=== PATIENT | male | born 1950 | race Caucasian/White ===

== ENCOUNTER 2016-07-19 16:28 | Emergency (ER) | payer OTHER ==
[~2016-07-19] VITALS: Ht 172.7 cm; Wt 90.9 kg
[~2016-07-19 16:28] MED LIST: ASPI-556 PO; CARV6; CIPR-278 PO; FURO40TA5 PO; ISOS5TAB5 PO; ONDA4 PO; PANT40TA25 PO; SIMV20TA6 PO; TAMS0.4C32 PO
[2016-07-19 17:21] LABS: BASOPHILS % (AUTO) 0.6 % (0.0-2.0); EOSINOPHILS % (AUTO) 1.3 % (1.0-6.0); HEMATOCRIT 44.3 % (41-53); HEMOGLOBIN 14.2 g/dL (13.5-17.5); LYMPHOCYTES # (AUTO) 2.2 K/uL (1.0-4.8); LYMPHOCYTES % (AUTO) 24.4 % (22.0-44.0); MEAN CORPUSCULAR HEMOGLOBIN 28.1 pg (26.0-34.0); MEAN CORPUSCULAR HGB CONC 32.2 G/dL (31.0-37.0); MEAN CORPUSCULAR VOLUME 87 fL (80-100); MONOCYTES # (AUTO) 0.8 K/uL (0.1-1.0); MONOCYTES % (AUTO) 8.4 % (2.0-9.0); NEUTROPHILS # (AUTO) 5.8 K/uL (1.8-7.7); NEUTROPHILS % (AUTO) 65.3 % (40.0-70.0); PLATELET COUNT (AUTO) 267 K/uL (150-450); RED BLOOD CELL COUNT(AUTO) 5.07 MIL/uL (4.50-5.90); RED CELL DISTRIBUTION WIDTH 15.5 % (11.5-14.5); WHITE BLOOD COUNT (AUTO) 8.9 K/uL (4.5-11.0)
[2016-07-19 17:24] LABS: CALCIUM, TOTAL 9.2 mg/dL (8.8-10.5); CREATININE 1.24 mg/dL (0.60-1.30); POTASSIUM 4.1 mmol/L (3.5-5.1)
[2016-07-19 17:30] LABS: ALBUMIN 4.2 g/dL (3.4-5.0); BILIRUBIN,TOTAL 0.3 mg/dL (0.1-1.0); TOTAL PROTEIN, SERUM 8.2 g/dL (6.4-8.2)
[2016-07-19 20:01] VITALS: BP 164/106
== END 2016-07-19 20:33 | disposition short-term general hospital (02) ==
LOC: EMS 16:31
DX: I61.8 Other nontraumatic intracerebral hemorrhage (principal); I10 Essential (primary) hypertension; I48.91 Unspecified atrial fibrillation; M19.90 Unspecified osteoarthritis, unspecified site; I50.9 Heart failure, unspecified; Z95.0 Presence of cardiac pacemaker; Z95.810 Presence of automatic (implantable) cardiac defibrillator; Z79.82 Long term (current) use of aspirin; W10.9XXA Fall (on) (from) unspecified stairs and steps, initial encounter; Y93.89 Activity, other specified; Y92.9 Unspecified place or not applicable; Y99.9 Unspecified external cause status
CPT/HCPCS: 36415; 70450; 80053; 80307; 85025; 99291; G0480

== ENCOUNTER 2016-07-30 04:53 | Inpatient (IN) | payer OTHER ==
[~2016-07-30] VITALS: Ht 172.7 cm; Wt 91.3 kg
[~2016-07-30 04:53] MED LIST changes: -CIPR-278 PO; -ONDA4 PO
[2016-07-30 05:48] LABS: BASOPHILS # (AUTO) 0.04 K/uL (0.00-0.20); BASOPHILS % (AUTO) 0.5 % (0.0-2.0); EOSINOPHILS # (AUTO) 0.21 K/uL (0.00-0.70); EOSINOPHILS % (AUTO) 2.48 % (1.0-6.0); HEMATOCRIT 42.9 % (41-53); HEMOGLOBIN 14.1 g/dL (13.5-17.5); LYMPHOCYTES # (AUTO) 2.1 K/uL (1.0-4.8); LYMPHOCYTES % (AUTO) 24.7 % (22.0-44.0); MEAN CORPUSCULAR HEMOGLOBIN 28.2 pg (26.0-34.0); MEAN CORPUSCULAR HGB CONC 32.8 G/dL (31.0-37.0); MEAN CORPUSCULAR VOLUME 86 fL (80-100); MONOCYTES # (AUTO) 0.7 K/uL (0.1-1.0); MONOCYTES % (AUTO) 8.4 % (2.0-9.0); NEUTROPHILS # (AUTO) 5.5 K/uL (1.8-7.7); PLATELET COUNT (AUTO) 231 K/uL (150-450); RED CELL DISTRIBUTION WIDTH 15.4 % (11.5-14.5); WHITE BLOOD COUNT (AUTO) 8.5 K/uL (4.5-11.0)
[2016-07-30 06:02] LABS: ANION GAP 9 mmol/L (8-16); CARBON DIOXIDE 28 mmol/L (22-29); CHLORIDE 104 mmol/L (98-107); CREATININE 0.89 mg/dL (0.60-1.30); GLOMERULAR FILTR. RATE CALC > 60 mL/min (>60); POTASSIUM 4.3 mmol/L (3.5-5.1); SODIUM SERUM 141 mmol/L (136-145); UREA NITROGEN, BLOOD 14 mg/dL (7-18)
[2016-07-30 06:07] LABS: ALANINE AMINOTRANSFERASE 33 U/L (12-78); ALBUMIN 3.8 g/dL (3.4-5.0); ASPARTATE AMINOTRANSFERASE 25 U/L (15-37); BILIRUBIN,TOTAL 0.5 mg/dL (0.1-1.0); TOTAL PROTEIN, SERUM 8.1 g/dL (6.4-8.2)
[2016-07-30 06:13] LABS: B-TYPE NATRIURETIC PEPTIDE 38 pg/mL (0-100)
[2016-07-30] MEDS ORDERED: ASPIRIN 81 MG CHEWABLE TABLET PO ONE (06:15)
[2016-07-30] MEDS ORDERED: NITROGLYCERIN 2% (1 GM=INCH) PACKET TP ONE (06:15)
[2016-07-30] MEDS ORDERED: ONDANSETRON HCL 4 MG/2 ML VIAL IVP PRN (06:30)
[2016-07-30] MEDS ORDERED: ACETAMINOPHEN 325 MG TABLET PO PRN ×2 (06:30→10:00)
[2016-07-30 08:24] VITALS: BP 158/96
[2016-07-30] MEDS ORDERED: BISACODYL 10 MG RECTAL RECTAL SUPPOSITORY PR PRN (10:00)
[2016-07-30] MEDS ORDERED: ALBUTEROL SULFATE 2.5 MG/0.5 ML NEB SOLUTION NEB PRN (10:00)
[2016-07-30] MEDS: LISINOPRIL 5 MG TABLET PO SCH (10:32)
[2016-07-30] MEDS: CARVEDILOL 6.25 MG TABLET PO SCH ×2 (10:32→20:32)
[2016-07-30 11:33] VITALS: BP 144/88
[2016-07-30 16:06] VITALS: BP 156/86
[2016-07-30] MEDS: INDOMETHACIN 50 MG CAPSULE PO PRN (16:09)
[2016-07-30 19:23] VITALS: BP 131/70
[2016-07-30] MEDS: DOCUSATE SODIUM 100 MG CAPSULE PO SCH (20:31)
[2016-07-30] MEDS ORDERED: SIMVASTATIN 20 MG TABLET PO SCH (21:00)
[2016-07-30] MEDS ORDERED: TAMSULOSIN HCL 0.4 MG CAPSULE PO SCH (21:00)
[2016-07-30] MEDS ORDERED: HEPARIN SODIUM,PORCINE 5,000 UNITS/ML VIAL SQ SCH (21:00)
[2016-07-30 23:43] VITALS: BP 147/90
[2016-07-31] MEDS: INDOMETHACIN 50 MG CAPSULE PO PRN ×2 (00:10→08:23)
[2016-07-31 05:56] LABS: BASOPHILS % (AUTO) 0.2 % (0.0-2.0); EOSINOPHILS % (AUTO) 2.1 % (1.0-6.0); HEMATOCRIT 41.5 % (41-53); HEMOGLOBIN 13.2 g/dL (13.5-17.5); LYMPHOCYTES # (AUTO) 1.5 K/uL (1.0-4.8); LYMPHOCYTES % (AUTO) 18.2 % (22.0-44.0); MEAN CORPUSCULAR HEMOGLOBIN 27.9 pg (26.0-34.0); MEAN CORPUSCULAR HGB CONC 31.8 G/dL (31.0-37.0); MEAN CORPUSCULAR VOLUME 88 fL (80-100); MONOCYTES # (AUTO) 0.9 K/uL (0.1-1.0); MONOCYTES % (AUTO) 10.3 % (2.0-9.0); NEUTROPHILS # (AUTO) 5.8 K/uL (1.8-7.7); NEUTROPHILS % (AUTO) 69.2 % (40.0-70.0); PLATELET COUNT (AUTO) 238 K/uL (150-450); RED BLOOD CELL COUNT(AUTO) 4.73 MIL/uL (4.50-5.90); RED CELL DISTRIBUTION WIDTH 14.8 % (11.5-14.5); WHITE BLOOD COUNT (AUTO) 8.4 K/uL (4.5-11.0)
[2016-07-31 06:08] LABS: ALANINE AMINOTRANSFERASE 19 U/L (12-78); ALBUMIN 3.4 g/dL (3.4-5.0); ANION GAP 7 mmol/L (8-16); ASPARTATE AMINOTRANSFERASE 12 U/L (15-37); BILIRUBIN,TOTAL 0.3 mg/dL (0.1-1.0); CALCIUM, TOTAL 8.9 mg/dL (8.8-10.5); CARBON DIOXIDE 28 mmol/L (22-29); CHLORIDE 103 mmol/L (98-107); CREATININE 0.85 mg/dL (0.60-1.30); GLOMERULAR FILTR. RATE CALC > 60 mL/min (>60); SODIUM SERUM 138 mmol/L (136-145); TOTAL PROTEIN, SERUM 7.1 g/dL (6.4-8.2); UREA NITROGEN, BLOOD 14 mg/dL (7-18)
[2016-07-31 06:42] VITALS: BP 148/90
[2016-07-31 07:22] VITALS: BP 139/76
[2016-07-31] MEDS: CARVEDILOL 6.25 MG TABLET PO SCH (08:22)
[2016-07-31] MEDS: LISINOPRIL 5 MG TABLET PO SCH (08:22)
[2016-07-31] MEDS: DOCUSATE SODIUM 100 MG CAPSULE PO SCH (08:22)
[2016-07-31] MEDS ORDERED: PANTOPRAZOLE SODIUM 40 MG DR TABLET PO SCH (09:00)
[2016-07-31 11:22] VITALS: BP 156/90
[2016-07-31] MEDS ORDERED: LISI-660 PO (12:06)
[2016-07-31] MEDS ORDERED: INDO25 PO (12:07)
== END 2016-07-31 12:30 | disposition home or self-care (01) | DRG 198 ==
LOC: EMS 04:54 → 5N 07:18
PROVIDERS: ADMIT Internal Medicine; ATTEND Internal Medicine
DX: R07.89 Other chest pain (principal); I25.2 Old myocardial infarction; I50.22 Chronic systolic (congestive) heart failure; I42.6 Alcoholic cardiomyopathy; I11.0 Hypertensive heart disease with heart failure; I48.0 Paroxysmal atrial fibrillation; E66.9 Obesity, unspecified; I25.10 Atherosclerotic heart disease of native coronary artery without angina pectoris; M10.9 Gout, unspecified; M19.90 Unspecified osteoarthritis, unspecified site; N40.0 Benign prostatic hyperplasia without lower urinary tract symptoms; Z95.810 Presence of automatic (implantable) cardiac defibrillator; Z91.19 Patient's noncompliance with other medical treatment and regimen; Z79.899 Other long term (current) drug therapy; Z79.82 Long term (current) use of aspirin; Z98.61 Coronary angioplasty status; Z82.49 Family history of ischemic heart disease and other diseases of the circulatory system; Z68.30 Body mass index [BMI] 30.0-30.9, adult
CPT/HCPCS: 83735; 93005; 93306; 99285

== ENCOUNTER → 2017-05-18 | Outpatient (CLI) | payer MEDICARE, OTHER ==
[~2017-05-18] MED LIST changes: +INDO25 PO; +LISI-660 PO
[2017-05-18 12:39] LABS: BASOPHILS % (AUTO) 0.7 % (0.0-2.0); EOSINOPHILS % (AUTO) 2.3 % (1.0-6.0); HEMATOCRIT 42.3 % (41-53); HEMOGLOBIN 13.9 g/dL (13.5-17.5); LYMPHOCYTES # (AUTO) 1.5 K/uL (1.0-4.8); LYMPHOCYTES % (AUTO) 23.2 % (22.0-44.0); MEAN CORPUSCULAR HEMOGLOBIN 28.5 pg (26.0-34.0); MEAN CORPUSCULAR HGB CONC 32.9 G/dL (31.0-37.0); MEAN CORPUSCULAR VOLUME 87 fL (80-100); MONOCYTES # (AUTO) 0.6 K/uL (0.1-1.0); MONOCYTES % (AUTO) 8.8 % (2.0-9.0); NEUTROPHILS # (AUTO) 4.2 K/uL (1.8-7.7); PLATELET COUNT (AUTO) 243 K/uL (150-450); RED BLOOD CELL COUNT(AUTO) 4.88 MIL/uL (4.50-5.90); RED CELL DISTRIBUTION WIDTH 15.4 % (11.5-14.5)
[2017-05-18 12:52] LABS: ALANINE AMINOTRANSFERASE 54 U/L (12-78); ALKALINE PHOSPHATASE 85 U/L (46-116); ANION GAP 8 mmol/L (8-16); ASPARTATE AMINOTRANSFERASE 31 U/L (15-37); BILIRUBIN,TOTAL 0.5 mg/dL (0.1-1.0); CALCIUM, TOTAL 8.7 mg/dL (8.8-10.5); CARBON DIOXIDE 32 mmol/L (22-29); CHLORIDE 102 mmol/L (98-107); CHOL/HDL RATIO 2.2 (4.2-7.3); CHOLESTEROL 165 mg/dL (131-200); CREATININE 0.89 mg/dL (0.60-1.30); FREE T4 (FREE THYROXINE) 0.99 ng/dL (0.76-1.46); GLOMERULAR FILTR. RATE CALC > 60 mL/min (>60); GLUCOSE,RANDOM 97 mg/dL (70-110); HDL CHOLESTEROL 74 mg/dL (40-60); LDL CHOL (CALC.) 52 mg/dL (0-130); POTASSIUM 4.2 mmol/L (3.5-5.1); SODIUM SERUM 142 mmol/L (136-145); THYROID STIMULATING HORMONE 1.36 uIU/mL (0.36-3.74); TRIGLYCERIDES 193 mg/dL (15-150); UREA NITROGEN, BLOOD 12 mg/dL (7-18)
== END | disposition home or self-care (01) ==
LOC: LABPV 09:35
PROVIDERS: ATTEND Internal Medicine Cardiovascular Disease
DX: I11.0 Hypertensive heart disease with heart failure (principal); I50.9 Heart failure, unspecified; E11.8 Type 2 diabetes mellitus with unspecified complications; E55.9 Vitamin D deficiency, unspecified; D56.5 Hemoglobin E-beta thalassemia
CPT/HCPCS: 82306; 83036; 83735; 84439; 84443

== ENCOUNTER → 2017-06-21 | Outpatient (CLI) | payer MEDICARE, OTHER | END | disposition home or self-care (01) | LOC: LABPV 08:33 | PROVIDERS: ATTEND Physician Assistant | DX: R97.20 Elevated prostate specific antigen [PSA] (principal) | CPT/HCPCS: 84153 ==

== ENCOUNTER → 2018-01-03 | Outpatient (CLI) | payer MEDICARE, OTHER ==
[2018-01-03 10:01] LABS: BASOPHILS % (AUTO) 0.9 % (0.0-2.0); EOSINOPHILS % (AUTO) 2.5 % (1.0-6.0); HEMATOCRIT 43.1 % (41-53); HEMOGLOBIN 14.2 g/dL (13.5-17.5); LYMPHOCYTES # (AUTO) 1.9 K/uL (1.0-4.8); LYMPHOCYTES % (AUTO) 37.8 % (22.0-44.0); MEAN CORPUSCULAR HEMOGLOBIN 28.6 pg (26.0-34.0); MEAN CORPUSCULAR HGB CONC 32.9 G/dL (31.0-37.0); MEAN CORPUSCULAR VOLUME 87 fL (80-100); MONOCYTES # (AUTO) 0.5 K/uL (0.1-1.0); MONOCYTES % (AUTO) 10.5 % (2.0-9.0); NEUTROPHILS # (AUTO) 2.5 K/uL (1.8-7.7); NEUTROPHILS % (AUTO) 48.3 % (40.0-70.0); PLATELET COUNT (AUTO) 234 K/uL (150-450); RED BLOOD CELL COUNT(AUTO) 4.96 MIL/uL (4.50-5.90); RED CELL DISTRIBUTION WIDTH 14.1 % (11.5-14.5)
[2018-01-03 10:18] LABS: HEMOGLOBIN A1C 6.1 % (4.5-6.2)
[2018-01-03 10:31] LABS: ALBUMIN 4.1 g/dL (3.4-5.0); BILIRUBIN,TOTAL 0.4 mg/dL (0.1-1.0); CALCIUM, TOTAL 9.1 mg/dL (8.8-10.5); CHOL/HDL RATIO 2.4 (4.2-7.3); CREATININE 1.31 mg/dL (0.60-1.30); FREE T4 (FREE THYROXINE) 0.87 ng/dL (0.76-1.46); POTASSIUM 3.7 mmol/L (3.5-5.1); THYROID STIMULATING HORMONE 2.05 uIU/mL (0.36-3.74); TOTAL PROTEIN, SERUM 8.2 g/dL (6.4-8.2)
[2018-01-03 10:44] LABS: PROSTATE SPECIFIC ANTIGEN 3.11 ng/mL (0.00-4.00)
== END | disposition home or self-care (01) ==
LOC: LABPV 08:07
PROVIDERS: ATTEND Internal Medicine Cardiovascular Disease
DX: I11.0 Hypertensive heart disease with heart failure (principal); I50.9 Heart failure, unspecified; E11.8 Type 2 diabetes mellitus with unspecified complications; E55.9 Vitamin D deficiency, unspecified; D56.5 Hemoglobin E-beta thalassemia; I25.10 Atherosclerotic heart disease of native coronary artery without angina pectoris; M10.9 Gout, unspecified; E78.00 Pure hypercholesterolemia, unspecified
CPT/HCPCS: 82306; 83036; 83735; 84153; 84439; 84443

== ENCOUNTER → 2018-07-25 | Outpatient (CLI) | payer MEDICARE, OTHER ==
[2018-07-25 09:59] LABS: BASOPHILS % (AUTO) 0.8 % (0.0-2.0); EOSINOPHILS % (AUTO) 2.9 % (1.0-6.0); HEMATOCRIT 41.9 % (41-53); HEMOGLOBIN 13.7 g/dL (13.5-17.5); LYMPHOCYTES # (AUTO) 1.5 K/uL (1.0-4.8); MEAN CORPUSCULAR HEMOGLOBIN 29.3 pg (26.0-34.0); MEAN CORPUSCULAR HGB CONC 32.8 G/dL (31.0-37.0); MEAN CORPUSCULAR VOLUME 90 fL (80-100); MONOCYTES # (AUTO) 0.5 K/uL (0.1-1.0); MONOCYTES % (AUTO) 11.7 % (2.0-9.0); NEUTROPHILS # (AUTO) 2.4 K/uL (1.8-7.7); NEUTROPHILS % (AUTO) 52.6 % (40.0-70.0); PLATELET COUNT (AUTO) 193 K/uL (150-450); RED BLOOD CELL COUNT(AUTO) 4.68 MIL/uL (4.50-5.90); RED CELL DISTRIBUTION WIDTH 14.5 % (11.5-14.5)
[2018-07-25 10:08] LABS: HEMOGLOBIN A1C 5.4 % (4.5-6.2)
[2018-07-25 10:14] LABS: B-TYPE NATRIURETIC PEPTIDE 357 pg/mL (0-100)
[2018-07-25 10:17] LABS: ALANINE AMINOTRANSFERASE 43 U/L (12-78); ALBUMIN 3.9 g/dL (3.4-5.0); ALKALINE PHOSPHATASE 62 U/L (46-116); ANION GAP 11 mmol/L (8-16); ASPARTATE AMINOTRANSFERASE 28 U/L (15-37); BILIRUBIN,TOTAL 0.6 mg/dL (0.1-1.0); CALCIUM, TOTAL 9.2 mg/dL (8.8-10.5); CARBON DIOXIDE 27 mmol/L (22-29); CHLORIDE 104 mmol/L (98-107); CHOLESTEROL 155 mg/dL (131-200); CREATININE 1.05 mg/dL (0.60-1.30); FREE T4 (FREE THYROXINE) 0.97 ng/dL (0.76-1.46); GLOMERULAR FILTR. RATE CALC > 60 mL/min (>60); GLUCOSE,RANDOM 102 mg/dL (70-110); HDL CHOLESTEROL 79 mg/dL (40-60); LDL CHOL (CALC.) 65 mg/dL (0-130); POTASSIUM 3.8 mmol/L (3.5-5.1); SODIUM SERUM 142 mmol/L (136-145); THYROID STIMULATING HORMONE 1.23 uIU/mL (0.36-3.74); TOTAL PROTEIN, SERUM 7.3 g/dL (6.4-8.2); TRIGLYCERIDES 53 mg/dL (15-150); UREA NITROGEN, BLOOD 17 mg/dL (7-18)
[2018-07-25 10:24] LABS: PROSTATE SPECIFIC ANTIGEN 2.87 ng/mL (0.00-4.00)
== END | disposition home or self-care (01) ==
LOC: LABPV 07:54
PROVIDERS: ATTEND Internal Medicine Cardiovascular Disease
DX: I11.0 Hypertensive heart disease with heart failure (principal); I50.9 Heart failure, unspecified; E11.9 Type 2 diabetes mellitus without complications; E55.9 Vitamin D deficiency, unspecified; D56.5 Hemoglobin E-beta thalassemia; I25.2 Old myocardial infarction; I25.10 Atherosclerotic heart disease of native coronary artery without angina pectoris; I48.0 Paroxysmal atrial fibrillation; E78.5 Hyperlipidemia, unspecified; E78.00 Pure hypercholesterolemia, unspecified; Z79.82 Long term (current) use of aspirin; M10.9 Gout, unspecified; N40.0 Benign prostatic hyperplasia without lower urinary tract symptoms
CPT/HCPCS: 82248; 82306; 83036; 83735; 84153; 84439; 84443

== ENCOUNTER 2019-03-27 22:35 | Inpatient (IN) | payer MEDICARE, OTHER ==
[~2019-03-27] VITALS: Ht 172.7 cm; Wt 92.5 kg
[~2019-03-27 22:35] MED LIST changes: +INDO-16 PO; -INDO25 PO; +SIMV-43 PO; -SIMV20TA6 PO; +TAMS-13 PO; -TAMS0.4C32 PO
[2019-03-27 23:07] LABS: BASOPHILS % (AUTO) 0.5 % (0.0-2.0); EOSINOPHILS % (AUTO) 0.4 % (1.0-6.0); HEMATOCRIT 36.4 % (41-53); LYMPHOCYTES # (AUTO) 1.3 K/uL (1.0-4.8); LYMPHOCYTES % (AUTO) 13.6 % (22.0-44.0); MEAN CORPUSCULAR HEMOGLOBIN 29.4 pg (26.0-34.0); MEAN CORPUSCULAR HGB CONC 33.1 G/dL (31.0-37.0); MEAN CORPUSCULAR VOLUME 89 fL (80-100); MONOCYTES % (AUTO) 10.8 % (2.0-9.0); NEUTROPHILS # (AUTO) 6.9 K/uL (1.8-7.7); NEUTROPHILS % (AUTO) 74.7 % (40.0-70.0); PLATELET COUNT (AUTO) 202 K/uL (150-450); RED CELL DISTRIBUTION WIDTH 14.1 % (11.5-14.5)
[2019-03-27 23:23] LABS: CALCIUM, TOTAL 8.6 mg/dL (8.8-10.5); CREATININE 1.55 mg/dL (0.60-1.30); POTASSIUM 4.3 mmol/L (3.5-5.1)
[2019-03-27 23:29] LABS: ALBUMIN 3.1 g/dL (3.4-5.0); BILIRUBIN,TOTAL 0.5 mg/dL (0.1-1.0); TOTAL PROTEIN, SERUM 7.1 g/dL (6.4-8.2)
[2019-03-27 23:30] LABS: INFLUENZA TYPE A NEGATIVE FOR TYPE A (NEGATIVE); INFLUENZA TYPE B NEGATIVE FOR TYPE B (NEGATIVE)
[2019-03-28] VITALS (7 sets, daily range): BP systolic 121–149; BP diastolic 72–99
[2019-03-28] MEDS ORDERED: IPRATROPIUM BROMIDE 0.5 MG/2.5 ML NEB SOLUTION NEB ONE
[2019-03-28] MEDS ORDERED: ALBUTEROL SULFATE 2.5 MG/0.5 ML NEB SOLUTION NEB ONE
[2019-03-28] MEDS ORDERED: ASPIRIN 81 MG CHEWABLE TABLET PO ONE
[2019-03-28] MEDS ORDERED: AZITHROMYCIN 500 MG/NS 250 ML IV ONE
[2019-03-28] MEDS ORDERED: 0.9% SODIUM CHLORIDE 5 ML NEB SOLUTION NEB ONE (01:13)
[2019-03-28] MEDS ORDERED: ONDANSETRON HCL 4 MG/2 ML VIAL IVP PRN ×2 (02:00→12:45)
[2019-03-28] MEDS ORDERED: ACETAMINOPHEN 325 MG TABLET PO PRN ×2 (02:00→12:45)
[2019-03-28] MEDS ORDERED: 0.9% SODIUM CHLORIDE 10 ML SYRINGE IVP PRN (02:00)
[2019-03-28] MEDS ORDERED: CefTRIAXone 1 GM/DEXTROSE 50 ML IV ONE (02:00)
[2019-03-28] MEDS ORDERED: FUROSEMIDE 40 MG/4 ML VIAL IVP ONE (04:00)
[2019-03-28] MEDS ORDERED: HYDROCODONE/ACETAMINOPHEN 5-325 MG TABLET PO PRN (12:45)
[2019-03-28] MEDS ORDERED: IPRATROPIUM BROMIDE 0.5 MG/2.5 ML NEB SOLUTION NEB PRN (12:45)
[2019-03-28] MEDS ORDERED: MORPHINE SULFATE 2 MG/ML SYRINGE IVP PRN (12:45)
[2019-03-28] MEDS ORDERED: MAGNESIUM HYDROXIDE SUSPENSION 30 ML UDCUP PO PRN (12:45)
[2019-03-28] MEDS ORDERED: GuaiFENesin/CODEINE [SUGAR FREE] 200-20MG/10 ML SYRUP UDCUP PO PRN (12:45)
[2019-03-28] MEDS ORDERED: ALBUTEROL SULFATE 2.5 MG/0.5 ML NEB SOLUTION NEB PRN (12:45)
[2019-03-28] MEDS ORDERED: BISACODYL 10 MG RECTAL RECTAL SUPPOSITORY PR PRN (12:45)
[2019-03-28] MEDS ORDERED: ZOLPIDEM TARTRATE 5 MG TABLET PO PRN (12:45)
[2019-03-28] MEDS ORDERED: PIPERACILLIN SODIUM/TAZOBACTAM 2.25 GM in DEXTROSE 5%-WATER 50 ML IV SCH (12:45)
[2019-03-28] MEDS ORDERED: CARV25 PO (12:50)
[2019-03-28] MEDS ORDERED: SIMV-261 PO (12:50)
[2019-03-28] MEDS ORDERED: SODIUM CHLORIDE 0.9% 250 ML IV ONE (13:24)
[2019-03-28] MEDS: ISOSORBIDE DINITRATE 10 MG TABLET PO SCH (13:27)
[2019-03-28] MEDS: SIMVASTATIN 20 MG TABLET PO SCH (13:27)
[2019-03-28] MEDS: LISINOPRIL 5 MG TABLET PO SCH (13:27)
[2019-03-28] MEDS: FUROSEMIDE 40 MG TABLET PO SCH (13:28)
[2019-03-28] MEDS: PANTOPRAZOLE SODIUM 40 MG DR TABLET PO SCH (13:28)
[2019-03-28] MEDS: TAMSULOSIN HCL 0.4 MG CAPSULE PO SCH (13:28)
[2019-03-28] MEDS: PIPERACILLIN/TAZO 3.375 GM/D5W 50 ML IV SCH ×2 (13:30→19:48)
[2019-03-28] MEDS: INDOMETHACIN 25 MG CAPSULE PO PRN ×2 (14:30→21:36)
[2019-03-28] MEDS: HEPARIN SODIUM,PORCINE 5,000 UNITS/ML VIAL SQ SCH ×2 (16:00→23:33)
[2019-03-28] MEDS: BENZONATATE 100 MG CAPSULE PO SCH ×2 (16:21→23:33)
[2019-03-28] MEDS: CARVEDILOL 6.25 MG TABLET PO SCH (21:36)
[2019-03-28] MEDS: DOCUSATE SODIUM 100 MG CAPSULE PO SCH (21:36)
[2019-03-29] MEDS: PIPERACILLIN/TAZO 3.375 GM/D5W 50 ML IV SCH ×2 (02:06→08:21)
[2019-03-29] MEDS ORDERED: MAGNESIUM SULFATE 2 GM/WATER 50 ML IV ONE (03:30)
[2019-03-29 05:08] VITALS: BP 99/47
[2019-03-29] MEDS ORDERED: SACU1TAB7 PO (06:32)
[2019-03-29] MEDS ORDERED: COLC0.6T73 PO (06:50)
[2019-03-29] MEDS ORDERED: CLOP75TA32 PO (06:56)
[2019-03-29] MEDS ORDERED: FINA5TAB41 PO (06:56)
[2019-03-29 07:15] VITALS: BP 131/78
[2019-03-29] MEDS: BENZONATATE 100 MG CAPSULE PO SCH (08:22)
[2019-03-29] MEDS: FUROSEMIDE 40 MG TABLET PO SCH (08:22)
[2019-03-29] MEDS: ISOSORBIDE DINITRATE 10 MG TABLET PO SCH (08:22)
[2019-03-29] MEDS: HEPARIN SODIUM,PORCINE 5,000 UNITS/ML VIAL SQ SCH (08:22)
[2019-03-29] MEDS: PANTOPRAZOLE SODIUM 40 MG DR TABLET PO SCH (08:22)
[2019-03-29] MEDS: SIMVASTATIN 20 MG TABLET PO SCH (08:22)
[2019-03-29] MEDS: CARVEDILOL 6.25 MG TABLET PO SCH (08:22)
[2019-03-29] MEDS: TAMSULOSIN HCL 0.4 MG CAPSULE PO SCH (08:23)
[2019-03-29] MEDS: LISINOPRIL 5 MG TABLET PO SCH (08:23)
[2019-03-29] MEDS: DOCUSATE SODIUM 100 MG CAPSULE PO SCH (08:26)
[2019-03-29] MEDS ORDERED: ASPIRIN 81 MG EC TABLET PO SCH (09:00)
[2019-03-29] MEDS ORDERED: LEVO500 PO (10:25)
[2019-03-29 11:40] VITALS: BP 100/62
== END 2019-03-29 12:30 | disposition home or self-care (01) | DRG 291 ==
LOC: EMS 22:36 → 5S 03-28 02:05
PROVIDERS: ADMIT Hospitalist; ATTEND Hospitalist
DX: I11.0 Hypertensive heart disease with heart failure (principal); J18.9 Pneumonia, unspecified organism; N17.9 Acute kidney failure, unspecified; I50.23 Acute on chronic systolic (congestive) heart failure; E66.9 Obesity, unspecified; E83.42 Hypomagnesemia; I48.91 Unspecified atrial fibrillation; M10.9 Gout, unspecified; R91.8 Other nonspecific abnormal finding of lung field; M19.90 Unspecified osteoarthritis, unspecified site; N40.0 Benign prostatic hyperplasia without lower urinary tract symptoms; E78.5 Hyperlipidemia, unspecified; Z68.31 Body mass index [BMI] 31.0-31.9, adult; Z82.49 Family history of ischemic heart disease and other diseases of the circulatory system; Z79.899 Other long term (current) drug therapy
CPT/HCPCS: 71250; 83735; 87040; 87804; 93005; 93306; 94640; J0456; J0696; J1644; J1940; J2543; J3475; J7050

== ENCOUNTER 2019-05-09 16:07 | Emergency (ER) | payer MEDICARE, OTHER ==
[~2019-05-09] VITALS: Ht 172.7 cm; Wt 90.0 kg
[~2019-05-09 16:07] MED LIST changes: +CARV25 PO; -CARV6; +CLOP75TA32 PO; +COLC0.6T73 PO; +FINA5TAB41 PO; -INDO-16 PO; -ISOS5TAB5 PO; +LEVO-72 PO; -LISI-660 PO; +SACU1TAB7 PO; +SIMV-261 PO; -SIMV-43 PO
[2019-05-09] MEDS ORDERED: CLON1PAT4 TD (16:20)
[2019-05-09 17:16] LABS: BASOPHILS % (AUTO) 0.6 % (0.0-2.0); HEMATOCRIT 41.5 % (41-53); HEMOGLOBIN 13.4 g/dL (13.5-17.5); LYMPHOCYTES # (AUTO) 1.8 K/uL (1.0-4.8); MEAN CORPUSCULAR HEMOGLOBIN 28.6 pg (26.0-34.0); MEAN CORPUSCULAR HGB CONC 32.2 G/dL (31.0-37.0); MEAN CORPUSCULAR VOLUME 89 fL (80-100); MONOCYTES # (AUTO) 0.7 K/uL (0.1-1.0); MONOCYTES % (AUTO) 11.2 % (2.0-9.0); NEUTROPHILS # (AUTO) 3.7 K/uL (1.8-7.7); NEUTROPHILS % (AUTO) 58.2 % (40.0-70.0); PLATELET COUNT (AUTO) 211 K/uL (150-450); RED BLOOD CELL COUNT(AUTO) 4.67 MIL/uL (4.50-5.90); RED CELL DISTRIBUTION WIDTH 16.1 % (11.5-14.5)
[2019-05-09 17:24] LABS: CALCIUM, TOTAL 8.9 mg/dL (8.8-10.5); CREATININE 1.34 mg/dL (0.60-1.30); POTASSIUM 3.5 mmol/L (3.5-5.1)
[2019-05-09 17:43] LABS: INR 1.1 (0.9-1.1); PROTHROMBIN TIME 10.7 SEC (9.4-11.6)
[2019-05-09 17:49] LABS: ALBUMIN 4.1 g/dL (3.4-5.0); BILIRUBIN,TOTAL 0.8 mg/dL (0.1-1.0); TOTAL PROTEIN, SERUM 7.4 g/dL (6.4-8.2)
[2019-05-09 18:40] VITALS: BP 144/89
== END 2019-05-09 18:45 | disposition home or self-care (01) ==
LOC: EMS 16:09
DX: I49.3 Ventricular premature depolarization (principal); I48.91 Unspecified atrial fibrillation; I11.0 Hypertensive heart disease with heart failure; I50.9 Heart failure, unspecified; I25.2 Old myocardial infarction; M19.90 Unspecified osteoarthritis, unspecified site; Z95.0 Presence of cardiac pacemaker; Z79.899 Other long term (current) drug therapy; Z79.82 Long term (current) use of aspirin
CPT/HCPCS: 71250; 93005

== ENCOUNTER 2019-05-29 08:19 | Inpatient (IN) | payer MEDICARE, OTHER ==
[~2019-05-29] VITALS: Ht 167.6 cm; Wt 90.9 kg
[~2019-05-29 08:19] MED LIST changes: +CLON1PAT4 TD; -LEVO-72 PO; -PANT40TA25 PO
[2019-05-29] MEDS ORDERED: NITROGLYCERIN 2% (1 GM=INCH) PACKET TP ONE (09:00)
[2019-05-29 09:59] LABS: BASOPHILS % (AUTO) 0.9 % (0.0-2.0); HEMATOCRIT 37.8 % (41-53); HEMOGLOBIN 12.5 g/dL (13.5-17.5); LYMPHOCYTES # (AUTO) 1.1 K/uL (1.0-4.8); MEAN CORPUSCULAR HEMOGLOBIN 29.7 pg (26.0-34.0); MEAN CORPUSCULAR HGB CONC 33.1 G/dL (31.0-37.0); MEAN CORPUSCULAR VOLUME 90 fL (80-100); MONOCYTES # (AUTO) 0.6 K/uL (0.1-1.0); MONOCYTES % (AUTO) 9.4 % (2.0-9.0); NEUTROPHILS # (AUTO) 4.1 K/uL (1.8-7.7); NEUTROPHILS % (AUTO) 69.7 % (40.0-70.0); PLATELET COUNT (AUTO) 139 K/uL (150-450); RED BLOOD CELL COUNT(AUTO) 4.21 MIL/uL (4.50-5.90); RED CELL DISTRIBUTION WIDTH 16.5 % (11.5-14.5)
[2019-05-29 10:11] LABS: ANION GAP 8 mmol/L (8-16); CALCIUM, TOTAL 8.6 mg/dL (8.8-10.5); CARBON DIOXIDE 28 mmol/L (22-29); CHLORIDE 106 mmol/L (98-107); CREATININE 0.97 mg/dL (0.60-1.30); GLOMERULAR FILTR. RATE CALC > 60 mL/min (>60); GLUCOSE,RANDOM 119 mg/dL (70-110); SODIUM SERUM 142 mmol/L (136-145); UREA NITROGEN, BLOOD 15 mg/dL (7-18)
[2019-05-29 10:26] LABS: B-TYPE NATRIURETIC PEPTIDE 1400 pg/mL (0-100)
[2019-05-29 10:36] LABS: ALANINE AMINOTRANSFERASE 30 U/L (12-78); ALBUMIN 3.6 g/dL (3.4-5.0); ALKALINE PHOSPHATASE 62 U/L (46-116); ASPARTATE AMINOTRANSFERASE 22 U/L (15-37); CREATINE KINASE, TOTAL ONLY 79 U/L (39-308); TOTAL PROTEIN, SERUM 6.5 g/dL (6.4-8.2)
[2019-05-29 10:45] LABS: INR 1.2 (0.9-1.1); PROTHROMBIN TIME 11.8 SEC (9.4-11.6)
[2019-05-29] MEDS ORDERED: MAGNESIUM HYDROXIDE SUSPENSION 30 ML UDCUP PO PRN (11:00)
[2019-05-29] MEDS ORDERED: ALBUTEROL SULFATE 2.5 MG/0.5 ML NEB SOLUTION NEB PRN (11:00)
[2019-05-29] MEDS ORDERED: ACETAMINOPHEN 325 MG TABLET PO PRN (11:00)
[2019-05-29] MEDS: FUROSEMIDE 40 MG/4 ML VIAL IVP SCH (11:34)
[2019-05-29 16:07] VITALS: BP 144/82
[2019-05-29] MEDS: HEPARIN SODIUM,PORCINE 5,000 UNITS/ML VIAL SQ SCH ×2 (17:54→23:34)
[2019-05-29] MEDS: ISOSORBIDE MONONITRATE 30 MG ER TABLET PO SCH (17:54)
[2019-05-29 20:20] VITALS: BP 130/88
[2019-05-29] MEDS: SACUBITRIL/VALSARTAN 49-51 MG TABLET PO SCH (20:28)
[2019-05-29] MEDS: RANOLAZINE 500 MG ER TABLET PO SCH (20:28)
[2019-05-29] MEDS: CARVEDILOL 12.5 MG TABLET PO SCH (20:29)
[2019-05-29] MEDS: DOCUSATE SODIUM 100 MG CAPSULE PO SCH (20:29)
[2019-05-29 22:19] LABS: APPEARANCE,URINE CLEAR (CLEAR); BILIRUBIN,URINE NEGATIVE (NEGATIVE); GLUCOSE, URINE (UA) NEGATIVE (NEGATIVE); KETONES,URINE NEGATIVE (NEGATIVE); LEUKOCYTE ESTERASE ,URINE NEGATIVE (NEGATIVE); NITRATE,URINE NEGATIVE (NEGATIVE); OCCULT BLOOD,URINE NEGATIVE (NEGATIVE); PROTEIN,URINE TRACE (NEGATIVE); UROBILINOGEN,URINE 0.2 mg/dL (<=1.0)
[2019-05-29] MEDS ORDERED: ZOLPIDEM TARTRATE 5 MG TABLET PO PRN (22:30)
[2019-05-29 23:35] VITALS: BP 124/91
[2019-05-30 05:29] VITALS: BP 138/94
[2019-05-30 06:35] LABS: BASOPHILS % (AUTO) 0.7 % (0.0-2.0); EOSINOPHILS % (AUTO) 1.4 % (1.0-6.0); HEMATOCRIT 38.3 % (41-53); HEMOGLOBIN 12.5 g/dL (13.5-17.5); LYMPHOCYTES # (AUTO) 1.1 K/uL (1.0-4.8); LYMPHOCYTES % (AUTO) 21.6 % (22.0-44.0); MEAN CORPUSCULAR HGB CONC 32.6 G/dL (31.0-37.0); MEAN CORPUSCULAR VOLUME 89 fL (80-100); MONOCYTES # (AUTO) 0.5 K/uL (0.1-1.0); MONOCYTES % (AUTO) 9.6 % (2.0-9.0); NEUTROPHILS # (AUTO) 3.3 K/uL (1.8-7.7); NEUTROPHILS % (AUTO) 66.7 % (40.0-70.0); PLATELET COUNT (AUTO) 147 K/uL (150-450); RED CELL DISTRIBUTION WIDTH 16.7 % (11.5-14.5)
[2019-05-30 07:11] LABS: ALBUMIN 3.7 g/dL (3.4-5.0); BILIRUBIN,TOTAL 0.8 mg/dL (0.1-1.0); CREATININE 1.2 mg/dL (0.60-1.30); MAGNESIUM 1.7 mg/dL (1.80-2.40); POTASSIUM 3.7 mmol/L (3.5-5.1); TOTAL PROTEIN, SERUM 6.8 g/dL (6.4-8.2)
[2019-05-30 07:16] VITALS: BP 126/95
[2019-05-30] MEDS ORDERED: ASPIRIN 81 MG CHEWABLE TABLET PO SCH (09:00)
[2019-05-30] MEDS ORDERED: CLOPIDOGREL BISULFATE 75 MG TABLET PO SCH (09:00)
[2019-05-30] MEDS ORDERED: FAMOTIDINE 20 MG TABLET PO SCH (09:00)
[2019-05-30] MEDS ORDERED: LISINOPRIL 5 MG TABLET PO SCH (09:00)
[2019-05-30] MEDS: HEPARIN SODIUM,PORCINE 5,000 UNITS/ML VIAL SQ SCH (09:06)
[2019-05-30] MEDS: DOCUSATE SODIUM 100 MG CAPSULE PO SCH (09:16)
[2019-05-30] MEDS: SACUBITRIL/VALSARTAN 49-51 MG TABLET PO SCH (09:16)
[2019-05-30] MEDS: CARVEDILOL 12.5 MG TABLET PO SCH (09:16)
[2019-05-30] MEDS: ISOSORBIDE MONONITRATE 30 MG ER TABLET PO SCH (09:17)
[2019-05-30] MEDS: RANOLAZINE 500 MG ER TABLET PO SCH (09:19)
[2019-05-30] MEDS: FUROSEMIDE 40 MG/4 ML VIAL IVP SCH (09:25)
[2019-05-30 11:29] VITALS: BP 112/50
[2019-05-30] MEDS ORDERED: MAGNESIUM OXIDE 400 MG TABLET PO SCH (13:30)
[2019-05-30] MEDS ORDERED: SPIR25 PO ×3 (14:03→14:05)
== END 2019-05-30 14:15 | disposition home or self-care (01) | DRG 291 ==
LOC: EMS 08:22 → 5N 13:06
PROVIDERS: ADMIT Internal Medicine; ATTEND Internal Medicine
DX: I11.0 Hypertensive heart disease with heart failure (principal); I50.21 Acute systolic (congestive) heart failure; I25.5 Ischemic cardiomyopathy; I27.20 Pulmonary hypertension, unspecified; N40.0 Benign prostatic hyperplasia without lower urinary tract symptoms; M19.90 Unspecified osteoarthritis, unspecified site; I48.91 Unspecified atrial fibrillation; M10.9 Gout, unspecified; E66.9 Obesity, unspecified; E78.5 Hyperlipidemia, unspecified; I25.119 Atherosclerotic heart disease of native coronary artery with unspecified angina pectoris; I25.2 Old myocardial infarction; Z83.3 Family history of diabetes mellitus; Z82.49 Family history of ischemic heart disease and other diseases of the circulatory system; Z72.89 Other problems related to lifestyle; Z95.5 Presence of coronary angioplasty implant and graft; Z68.32 Body mass index [BMI] 32.0-32.9, adult
CPT/HCPCS: 83735; 87081; 93005; 93306; J1644; J1940

== ENCOUNTER 2020-06-05 06:18 | Day surgery (SDC) | payer OTHER ==
[2020-06-03 10:42] LABS: COVID AG,FIA SOURCE NASOPHARYNGEAL
[~2020-06-05] VITALS: Ht 172.7 cm; Wt 88.6 kg
[~2020-06-05 06:18] MED LIST changes: +ASCO500 PO; +ASPI-1111 PO; -ASPI-556 PO; +ATOR40TA71 PO; +BENZ100C68 PO; -CARV25 PO; +CARV25TA32 PO; +CHOL200074 PO; -CLON1PAT4 TD; -CLOP75TA32 PO; +CLOP75TA60 PO; +FAMO20 PO; +FINA-27 PO; -FINA5TAB41 PO; +FURO40 PO; -FURO40TA5 PO; +GABA-1181 PO; +MONT10TA32 PO; +NITR0.4T50 SL; -SIMV-261 PO
[2020-06-05] MEDS ORDERED: SODIUM CHLORIDE 0.9% 1,000 ML ONE (06:54)
[2020-06-05] MEDS ORDERED: SODIUM CHLORIDE 0.9% 1,000 ML IV ONE (07:00)
[2020-06-05] MEDS ORDERED: MIDAZOLAM HCL 2 MG/2 ML VIAL ONE (08:02)
[2020-06-05] MEDS ORDERED: FentaNYL CITRATE PF 100 MCG/2 ML VIAL ONE (08:03)
[2020-06-05] MEDS ORDERED: MethylPREDNISolone SOD SUCC 125 MG/2 ML VIAL IVP ONE (09:15)
[2020-06-05] MEDS ORDERED: MethylPREDNISolone SOD SUCC 125 MG/2 ML VIAL ONE (09:24)
[2020-06-05] MEDS ORDERED: OXYGEN THERAPY IH SCH (20:00)
== END 2020-06-05 11:05 | disposition home or self-care (01) ==
LOC: SURGERY 06:18
PROVIDERS: ATTEND Internal Medicine Critical Care Medicine
DX: J38.4 Edema of larynx (principal); B37.0 Candidal stomatitis
CPT/HCPCS: 31623; 31624; 71045; 87070; 87101; 87206; 87220; 87426; 88184; 88185; C9803; J2250; J2930; J3010; J7030; 87015; 88108; 88312

== ENCOUNTER 2022-08-16 12:21 | Emergency (ER) | payer OTHER ==
[~2022-08-16] VITALS: Ht 172.7 cm; Wt 81.8 kg
[~2022-08-16 12:21] MED LIST changes: -ASPI-1111 PO; +ASPI-1444 PO; +MONT-40 PO; -MONT10TA32 PO
[2022-08-16 13:03] LABS: APPEARANCE,URINE TURBID (CLEAR); BILIRUBIN,URINE NEGATIVE (NEGATIVE); GLUCOSE, URINE (UA) NEGATIVE (NEGATIVE); KETONES,URINE NEGATIVE (NEGATIVE); LEUKOCYTE ESTERASE ,URINE SMALL (NEGATIVE); NITRATE,URINE NEGATIVE (NEGATIVE); OCCULT BLOOD,URINE LARGE (NEGATIVE); PH,URINE 6.5 (5.0-8.0); PROTEIN,URINE 100-200,SEE CONFIRM mg/dL (NEGATIVE); SPECIFIC GRAVITIY, URINE 1.006 (1.003-1.030); UROBILINOGEN,URINE <=1.0 mg/dL (<=1.0)
[2022-08-16 13:06] LABS: BACTERIA,URINE None Seen /HPF (None Seen); RBC,URINE Full Field /HPF (0-2); SULFOSALICYLIC ACID,URINE 2+ (Negative)
[2022-08-16 15:37] LABS: BASOPHILS % (AUTO) 0.7 % (0.0-2.0); EOSINOPHILS % (AUTO) 2.6 % (1.0-6.0); HEMATOCRIT 41.7 % (41-53); HEMOGLOBIN 13.2 g/dL (13.5-17.5); LYMPHOCYTES # (AUTO) 1.1 K/uL (1.0-4.8); LYMPHOCYTES % (AUTO) 16.1 % (22.0-44.0); MEAN CORPUSCULAR HEMOGLOBIN 28.6 pg (26.0-34.0); MEAN CORPUSCULAR HGB CONC 31.6 G/dL (31.0-37.0); MEAN CORPUSCULAR VOLUME 91 fL (80-100); MONOCYTES # (AUTO) 0.9 K/uL (0.1-1.0); MONOCYTES % (AUTO) 12.5 % (2.0-9.0); NEUTROPHILS # (AUTO) 4.9 K/uL (1.8-7.7); NEUTROPHILS % (AUTO) 68.1 % (40.0-70.0); PLATELET COUNT (AUTO) 218 K/uL (150-450); RED CELL DISTRIBUTION WIDTH 15.7 % (11.5-14.5)
[2022-08-16 15:43] LABS: ANION GAP 5 mmol/L (8-16); CALCIUM, TOTAL 9.6 mg/dL (8.8-10.5); CARBON DIOXIDE 32 mmol/L (22-29); CHLORIDE 101 mmol/L (98-107); CREATININE 1.18 mg/dL (0.60-1.30); GLOMERULAR FILTR. RATE CALC > 60 mL/min (>60); GLUCOSE,RANDOM 111 mg/dL (70-110); POTASSIUM 4.2 mmol/L (3.5-5.1); SODIUM SERUM 138 mmol/L (136-145); UREA NITROGEN, BLOOD 28 mg/dL (7-18)
[2022-08-16 15:49] LABS: ALANINE AMINOTRANSFERASE 72 U/L (12-78); ALKALINE PHOSPHATASE 91 U/L (46-116); ASPARTATE AMINOTRANSFERASE 31 U/L (15-37); BILIRUBIN,TOTAL 0.4 mg/dL (0.1-1.0); TOTAL PROTEIN, SERUM 7.6 g/dL (6.4-8.2)
[2022-08-16 16:37] VITALS: BP 130/82
== END 2022-08-16 16:39 | disposition home or self-care (01) ==
LOC: EMS 12:21
DX: R31.9 Hematuria, unspecified (principal); I48.91 Unspecified atrial fibrillation; M19.90 Unspecified osteoarthritis, unspecified site; I11.0 Hypertensive heart disease with heart failure; E11.9 Type 2 diabetes mellitus without complications; Z98.890 Other specified postprocedural states
CPT/HCPCS: 80053; 81001; 81002; 85025; 99283